=== PATIENT | female | born 1995 | race Caucasian/White ===

== ENCOUNTER 2018-06-25 09:05 | Outpatient (CLI) | payer OTHER ==
--- NOTE | 2018-06-25 11:05 | ULT ---
THYROID ULTRASOUND: HISTORY: Thyroid antibody positive. TECHNIQUE: Real-time imaging of the right and left lobes of the gland were performed. FINDINGS: The gland is heterogeneous in appearance. The right lobe measures 1.6 x 1.8 x 5.1 cm and the left lo be 1.5 x 1.7 x 5 cm. There are no discrete nodules identified. IMPRESSION: Very heterogeneous gland without focal discrete nodules. POS: [facility]
== END 2018-06-25 09:06 | disposition home or self-care (01) ==
LOC: SCSULT 09:05
PROVIDERS: ATTEND Otolaryngology Plastic Surgery within the Head & Neck
DX: R76.0 Raised antibody titer (principal)
CPT/HCPCS: 76536